=== PATIENT | male | born 1980 | race Caucasian/White ===

== ENCOUNTER → 2017-02-06 | Outpatient (CLI) | payer OTHER ==
--- NOTE | 2017-02-07 11:49 | RADIOLOGY REPORT (SQ) ---
EXAM DESCRIPTION: MRI RT LOWER JOINT WITHOUT COMPLETED DATE/TIME: 02/06/2017 3:21 pm REASON FOR STUDY: RIGHT KNEE PAIN (M25.561), CHRONIC RIGHT KNEE INSTABILITY (M23.51) M23.51 CHRONIC INSTABILITY OF KNEE, RIGHT KNEE M25.561 PAIN IN RIGHT KNEE COMPARISON: None. TECHNIQUE: Rightknee images acquired and stored on PACS. Multiplanar images include fat sensitive s equences as T1, water sensitive sequences as FST2 or STIR, cartilage sensitive sequences as FSPD, and gradient echo sequences. LIMITATIONS: None. FINDINGS: JOINT AND BURSAE: No effusion. BONE CORTEX AND MARROW: No alteration of signal to suggest marrow replacement. No worrisome bone lesi ons. No occult fracture. ACL: Intact. No degeneration or ganglion cyst. PCL: Intact. MCL: Intact. No periligamentous edema or fluid. LCL: Intact. No periligamentous edema or fluid. MEDIAL MENISCUS: Small complex tear posterior horn/ midbody inner edge medial meniscus, best shown on sagittal images 16-19, and coronal image 16. LATERAL MENISCUS: No tears. No abnormal signal. MEDIAL COMPARTMENT: Cartilage preserved. No bone bruises or reactive marrow edema. No osteophytes. LATERAL COMPARTMENT: Cartilage preserved. No bone bruises or reactive marrow edema. No osteophytes. PATELLA: No chondromalacia. No subchondral cysts. Medial and lateral retinacula intact. EXTENSOR MECHANISM: Intact. Quadriceps and patella tendons normal. SOFT TISSUES: Adjacent muscles and subcutaneous tissues normal. Normal flow void in popliteal artery and vein. OTHER: No other significant finding. IMPRESSION: Small complex tear medial meniscus. TECHNICAL DOCUMENTATION: JOB ID: [id number] [employer]- All Rights Reserved
== END ==
LOC: RAD 13:46
PROVIDERS: ATTEND Physician Assistant
DX: M25.561 Pain in right knee (principal); M23.51 Chronic instability of knee, right knee

== ENCOUNTER → 2017-02-12 | Outpatient (CLI) | payer OTHER ==
--- NOTE | 2017-02-12 14:33 | RADIOLOGY REPORT (SQ) ---
EXAM DESCRIPTION: MRI RT LOWER JOINT WITHOUT COMPLETED DATE/TIME: 02/12/2017 1:52 pm REASON FOR STUDY: RIGHT HIP PAIN (M25.551) M25.551 PAIN IN RIGHT HIP COMPARISON: None. TECHNIQUE: Righthip images acquired and stored on PACS. Multiplanar images to include fat sensitive sequences as T1, fluid sensitive sequences as T2/STIR and gradient echo sequences. Large FOV fat and fluid sensitive sequences include pelvis and opposite hip. LIMITATIONS: None. FINDINGS: BONE CORTEX AND MARROW: No generalized marrow replacement. No occult fracture. No worriso me bone lesions. RIGHT HIP: FEMORAL HEAD: No occult fracture. No osteophytes or subchondral cysts. Normal sphericity of femoral h ead/neck junction. No acetabular dysplasia. No evidence femoroacetabular impingement. No significant effusion. ACETABULUM: No acetabular dysplasia. No subchondral cysts. LABRUM: No loss of cartilage or delamination. Labrum is intact. No paralabral cysts. TROCHANTER: No trochanteric bursal effusion. No edema/fluid at the insertions of the gluteus medius and gluteus minimus. LEFT HIP: Limited evaluation. No worrisome bone lesions. No significant effusion. PELVIS, LOWER LUMBAR SPINE, SACROILIAC JOINTS: PELVIS : No insufficiency/stress fractures. No significant degenerative changes. Sacroiliac joints normal. L SPINE: No significant osteophytes or degenerative changes of the visualized lumbar spine. MUSCLES AND SOFT TISSUES: Adductors and piriformis normal. Abductors and greater trochanteric bursa n ormal without edema or fluid. Iliopsoas bursa without fluid. Hamstring attachments without edema or t ear. PELVIC SOFT TISSUES: No masses or adenopathy. SCIATIC NERVE: Identified, without masses or abnormal signal. OTHER: No other significant finding. IMPRESSION: NO SIGNIFICANT FINDING IN THE RIGHT HIP. TECHNICAL DOCUMENTATION: JOB ID: [id number] [employer]- All Rights Reserved
== END ==
LOC: EDSEX → RAD 12:58
PROVIDERS: ATTEND Physician Assistant
DX: M25.551 Pain in right hip (principal)

== ENCOUNTER → 2017-04-17 | Outpatient (CLI) | payer OTHER ==
--- NOTE | 2017-04-17 15:57 | RADIOLOGY REPORT (SQ) ---
EXAM DESCRIPTION: MRI RT UPPER JOINT WITHOUT COMPLETED DATE/TIME: 04/17/2017 3:31 pm REASON FOR STUDY: PAIN IN RIGHT SHOULDER (M25.511) M25.511 PAIN IN RIGHT SHOULDER COMPARISON: None. TECHNIQUE: Right shoulder images acquired and stored on PACS. Multiplanar imaging to include fat sen sitive sequences such as T1, water sensitive sequences such as FST2/STIR, cartilage sensitive sequenc es such as FSPD/gradient-echo sequences. LIMITATIONS: None. FINDINGS: BONE MARROW AND CORTEX: No worrisome bone lesions or marrow replacement. No occult fractur es. JOINT OR BURSAL EFFUSION: No significant joint or bursal fluid. No suggestion of loose bodies. GLENO-HUMERAL ARTICULATION: Normal articulation. No subluxation. No cystic change. No osteophytes or cartilage loss. ACROMION AND AC JOINT: No down-sloping or distal spur. Sub-acromial space maintained. No significa nt AC joint arthropathy. ROTATOR CUFF AND INTERVAL: Cuff intact. Slightly prominent cystic changes and underlying bone irregu larity in the posterolateral humeral head deep to infraspinatus insertion. The overlying cuff looks relatively normal, however. No cuff muscle atrophy. No rotator interval tear. No rotator interval thickening to suggest adhesive capsulitis. LABRUM AND BICEPS LABRAL COMPLEX: Intact. No labral tear. Intra-articular long-head biceps tendon n ormal. Distal biceps in normal location in bicipital groove. REMAINDER OF LABRUM AND IGHL : Grossly intact. PERIARTICULAR AND ADJACENT SOFT TISSUES: No masses or abnormal nodes. OTHER: No other significant finding. IMPRESSION: 1. Mild reactive bone changes underlying cuff (infraspinatus) insertion, slightly more conspicuous than typical. The cuff itself, however, looks normal. No significant tear or tendinosis . No labral pathology or chondral lesion. TECHNICAL DOCUMENTATION: JOB ID: [id number] [employer]- All Rights Reserved
== END ==
LOC: RAD 14:23
PROVIDERS: ATTEND Physician Assistant
DX: M25.511 Pain in right shoulder (principal)

== ENCOUNTER 2018-11-12 09:15 | Emergency (ER) | payer OTHER ==
--- NOTE | 2018-11-12 09:42 | ER Document Report ---
ED Medical Screen (RME) - General Chief Complaint: Syncope Stated Complaint: SYNCOPE Time Seen by Provider: 11/12/18 09:34 Primary Care Provider: GULSHAN LAMBERT PA [Primary Care Provider] - Follow up as needed Mode of Arrival: Medic Information source: Patient Notes: Patient presents patient presents to the emergency department, sent from the PA, with reports that he reached up to get a box off the shelf yesterday passed out hit his shoulder. He reports he was unable to talk for 2 minutes after that. Also reports for the past 2 weeks he has felt dizzy on and off and his body has felt weird, tingly. Reports family history of cardiac disease. aneurysms. Patient himself has history of PTSD, anxiety hypertension. Patient answering all questions appropriately no obvious neuro deficit, no weakness facial expressions symmetric. I have greeted and performed a rapid initial assessment of this patient. A comprehensive ED assessment and evaluation of the patient, analysis of test results and completion of the medical decision making process will be conducted by additional ED providers. Dictation of this chart was performed using voice recognition software; therefore, there may be some unintended grammatical errors. TRAVEL OUTSIDE OF THE [place] IN LAST 30 DAYS: No - Related Data Allergies/Adverse Reactions: No Known Allergies Allergy (Verified 11/12/18 09:28) Physical Exam - Vital signs Vitals: Temp Pulse Resp BP Pulse Ox 97.9 F 56 L 16 161/85 H 99 11/12/18 09:23 11/12/18 09:23 11/12/18 09:23 11/12/18 09:23 11/12/18 09:23 Course - Vital Signs Vital signs: Temp Pulse Resp BP Pulse Ox 97.9 F 56 L 16 161/85 H 99 11/12/18 09:23 11/12/18 09:23 11/12/18 09:23 11/12/18 09:23 11/12/18 09:23 Doctor's Discharge - Discharge Referrals: GULSHAN LAMBERT PA [Primary Care Provider] - Follow up as needed
[2018-11-12] MEDS ORDERED: MECLIZINE HCL 25 MG TABLET PO ONE (10:12)
--- NOTE | 2018-11-12 10:27 | ER Document Report ---
Entered by JACKIE RUBIO SCRIBE 11/12/18 1018 Acting as scribe for:JEFF VILCHIS MD ED Syncope and Near Syncope - General Chief Complaint: Syncope Stated Complaint: SYNCOPE Time Seen by Provider: 11/12/18 09:34 Primary Care Provider: GULSHAN LAMBERT PA [NO LOCAL MD] - Follow up as needed Mode of Arrival: Medic Information source: Patient Notes: 38-year-old male with anxiety who presents to the emergency department today with complaints of a 2-week history of intermittent dizziness. Patient states that last night he was reaching up to get a box off of a shelf in his garage and he "blacked out and fell down". Patient states during this episode he "could not talk" and developed tingling throughout the left side of his body. Patient states that this tingling has remained constant throughout his left upper and left lower extremity since yesterday. Patient states this is the first time he has had any syncopal event with this dizziness. Patient states that he notices that his dizziness is exacerbated with standing up and he does not get dizzy when lying in supine position. Patient states his "pulse is really low today", stating he usually has a heart rate of about 85-90. Patient also states that he feels like his "blood is ripping out of his skin". TRAVEL OUTSIDE OF THE [place] IN LAST 30 DAYS: No - Related Data Allergies/Adverse Reactions: No Known Allergies Allergy (Verified 11/12/18 09:28) Past Medical History - General Information source: Patient - Social History Smoking Status: Never Smoker Cigarette use (# per day): No Chew tobacco use (# tins/day): Yes - Dips Smoking Education Provided: No Frequency of alcohol use: Rare Drug Abuse: None Lives with: Family Family History: Reviewed & Not Pertinent, Other - Father has a glioblastoma Patient has suicidal ideation: No Patient has homicidal ideation: No - Past Medical History Cardiac Medical History: Reports: Hx Hypertension Psychiatric Medical History: Reports: Hx Anxiety, Hx Depression Past Surgical History: Reports: Hx Abdominal Surgery - hernia, Hx Orthopedic Surgery - knee Review of Systems - Review of Systems Constitutional: No symptoms reported EENT: No symptoms reported Cardiovascular: See HPI, Syncope, Dizziness Respiratory: No symptoms reported Gastrointestinal: No symptoms reported Genitourinary: No symptoms reported Male Genitourinary: No symptoms reported Musculoskeletal: No symptoms reported Skin: No symptoms reported Hematologic/Lymphatic: No symptoms reported Neurological/Psychological: See HPI, Tingling - left sided -: Yes All other systems reviewed and negative Physical Exam - Vital signs Vitals: Temp Pulse Resp BP Pulse Ox 97.9 F 56 L 16 161/85 H 99 11/12/18 09:23 11/12/18 09:23 11/12/18 09:23 11/12/18 09:23 11/12/18 09:23 - Notes Notes: Physical Exam: General: Alert, appears well. HEENT: Normocephalic. Atraumatic. PERRL. Extraocular movements intact. Oropharynx clear. No carotid bruits. No nystagmus with rapid head movement. Neck: Supple. Non-tender. Respiratory: No respiratory distress. Clear and equal breath sounds bilaterally. Cardiovascular: Regular rate and rhythm. Abdominal: Normal Inspection. Non-tender. No distension. Normal Bowel Sounds. Back: Non-tender. No deformity or step off. Extremities: Moves all four extremities. Upper extremities: Normal inspection. Normal ROM. Lower extremities: Normal inspection. No edema. Normal ROM. Neurological: Normal cognition. AAOx4. Normal speech. Psychological: Normal affect. Normal Mood. Skin: Warm. Dry. Normal color. Course - Re-evaluation Re-evalutation: 11/12/18 11:35 The patient reports that he does feel better after the Antivert. I had him stand up and look around and he states he could tell he big improvement. He complains of a persistent left-sided numbness though that involves his face left upper extremity and left lower extremity. We will get an MRI to exclude intracranial pathology. - Vital Signs Vital signs: Temp Pulse Resp BP Pulse Ox 97.9 F 56 L 16 161/85 H 99 11/12/18 09:23 11/12/18 09:23 11/12/18 09:23 11/12/18 09:23 11/12/18 09:23 - Laboratory Result Diagrams: 11/12/18 09:46 11/12/18 09:46 Laboratory results interpreted by me: 11/12/18 09:46 RDW 14.3 H - Diagnostic Test Radiology reviewed: Image reviewed, Reports reviewed - CT scan of the brain and MRI of the brain are both negative. - EKG Interpretation by Me EKG shows normal: Sinus rhythm, [place], Intervals, QRS Complexes, ST-T Waves Rate: Normal - 51 Rhythm: NSR Discharge - Discharge Clinical Impression: Dizziness, Numbness on left side Syncope Qualifiers: Syncope type: unspecified Qualified Code(s): R55 - Syncope and collapse Condition: Stable Disposition: HOME, SELF-CARE Additional Instructions: Syncopal Episode Syncope (fainting or near-fainting) can occur from many different health problems. Or it can be a simple fainting spell requiring no treatment. It is safe for you to go home, but further evaluation will likely be necessary. Your work-up may include tests for internal bleeding, heart disease, medication problems, or near-strokes. Tests are not always required, however, depending on the nature of your problem. The warning signs of an impending faint include: dizziness, lightheadedness, nausea, hot flashes, tingling, and weakness. If this happens, lay down and put your feet up, then wait until all of these symptoms have passed before standing up again. If these episodes become recurrent, or if you develop chest pain, heart palpitations, mental confusion, blurred vision, or headache, then you should call the physician, or go to the emergency room. The CT scan of your brain, and the MRI scan of your brain were both unremarkable. There was no explanation found for your left-sided numbness. Your dizziness sensation seem to improve some with the meclizine, so it would be reasonable to take meclizine over the next several days to see if it improves your symptoms. [facility] your other [facility] not improve. RETURN TO THE EMERGENCY ROOM IF ANY NEW OR WORSENING SYMPTOMS. Prescriptions: Meclizine HCl [Antivert 25 mg Tablet] 25 mg PO TID PRN #20 tablet PRN Reason: Referrals: GULSHAN LAMBERT PA [NO LOCAL MD] - Follow up as needed Scribe Attestation: 11/12/18 10:19 I personally performed the services described in the documentation, reviewed and edited the documentation which was dictated to the scribe in my presence, and it accurately records my words and actions. 11/12/18 1019 I personally performed the services described in the documentation, reviewed and edited the documentation which was dictated to the scribe in my presence, and it accurately records my words and actions.
--- NOTE | 2018-11-12 10:36 | RADIOLOGY REPORT (SQ) ---
EXAM DESCRIPTION: CHEST 2 VIEWS COMPLETED DATE/TIME: 11/12/2018 10:01 am REASON FOR STUDY: head injury, ?stroke, change loc yesterday COMPARISON: None. EXAM PARAMETERS: NUMBER OF VIEWS: two views TECHNIQUE: Digital Frontal and Lateral radiographic views of the chest acquired. RADIATION DOSE: NA LIMITATIONS: none FINDINGS: LUNGS AND PLEURA: No opacities, masses or pneumothorax. No pleural effusion. MEDIASTINUM AND HILAR STRUCTURES: No masses or contour abnormalities. HEART AND VASCULAR STRUCTURES: Heart normal size. No evidence for failure. BONES: No acute findings. HARDWARE: None in the chest. OTHER: No other significant finding. IMPRESSION: NO ACUTE RADIOGRAPHIC FINDING IN THE CHEST. TECHNICAL DOCUMENTATION: JOB ID: [id number] [employer]- All Rights Reserved Reading location - IP/workstation name: [email or web address]
--- NOTE | 2018-11-12 10:36 | RADIOLOGY REPORT (SQ) ---
EXAM DESCRIPTION: CT HEAD WITHOUT COMPLETED DATE/TIME: 11/12/2018 10:02 am REASON FOR STUDY: head injury, ?stroke, change loc yesterday COMPARISON: None. TECHNIQUE: Axial images acquired through the brain without intravenous contrast. Images reviewed wi th bone, brain and subdural windows. Images stored on PACS. All CT scanners at this facility use dose modulation, iterative reconstruction, and/or weight based d osing when appropriate to reduce radiation dose to as low as reasonably achievable (ALARA). [facility]: Dose Right [facility]: CareDose [facility]: Dose Right [facility]: Teradose 4D [facility]: Smart GEOLID RADIATION DOSE: CT Rad equipment meets quality standard of care and radiation dose reduction techniq ues were employed. CTDIvol: 53.2 mGy. DLP: 1124 mGy-cm. mGy. LIMITATIONS: None. FINDINGS: VENTRICLES: Normal size and contour. CEREBRUM: No masses. No hemorrhage. No midline shift. No evidence for acute infarction. Normal gra y/white matter differentiation. No areas of low density in the white matter. CEREBELLUM: No masses. No hemorrhage. No alteration of density. No evidence for acute infarction. EXTRAAXIAL SPACES: No fluid collections. No masses. ORBITS AND GLOBE: No intra- or extraconal masses. Normal contour of globe without masses. CALVARIUM: No fracture. PARANASAL SINUSES: No fluid or mucosal thickening. SOFT TISSUES: No mass or hematoma. OTHER: No other significant finding. IMPRESSION: NORMAL BRAIN CT WITHOUT CONTRAST. EVIDENCE OF ACUTE STROKE: NO. COMMENT: Quality ID # [id number]: Final reports with documentation of one or more dose reduction techniques (e.g., Automated exposure control, adjustment of the mA and/or kV according to patient size, use of iterative reconstruction technique) TECHNICAL DOCUMENTATION: JOB ID: [id number] [employer]- All Rights Reserved Reading location - IP/workstation name: [email or web address]
[2018-11-12 11:04] LABS: ABSOLUTE EOSINOPHILS # (AUTO) 0.1 10^3/uL (0.0-0.6); ABSOLUTE LYMPHOCYTES (AUTO) 1.5 10^3/uL (0.5-4.7); ABSOLUTE MONOCYTES (AUTO) 0.5 10^3/uL (0.1-1.4); ABSOLUTE NEUT (AUTO) 4.7 10^3/uL (1.7-8.2); BASOPHILS % (AUTO) 0.7 % (0-2); EOSINOPHILS % (AUTO) 1.5 % (0-6); HEMATOCRIT 43.5 % (37.9-51.0); HEMOGLOBIN 14.5 g/dL (13.5-17.0); LYMPHOCYTES % (AUTO) 22.1 % (13-45); MEAN CORPUSCULAR HEMOGLOBIN 27.1 pg (27.0-33.4); MEAN CORPUSCULAR HGB CONC 33.4 g/dL (32.0-36.0); MEAN CORPUSCULAR VOLUME 81 fl (80-97); MONOCYTES % (AUTO) 7.7 % (3-13); PLATELET COUNT 275 10^3/uL (150-450); RED BLOOD COUNT 5.36 10^6/uL (4.35-5.55); RED CELL DISTRIBUTION WIDTH 14.3 % (11.5-14.0); TOTAL CELLS COUNTED % (AUTO) 100 %
[2018-11-12 11:07] LABS: APPEARANCE,URINE SLIGHTLY-CLOUDY; BILIRUBIN,URINE NEGATIVE (NEGATIVE); COLOR,URINE YELLOW; GLUCOSE, URINE NEGATIVE (NEGATIVE); KETONES,URINE NEGATIVE (NEGATIVE); LEUKOCYTE ESTERASE,URINE NEGATIVE (NEGATIVE); NITRITE,URINE NEGATIVE (NEGATIVE); PROTEIN,URINE NEGATIVE (NEGATIVE); URINE SPECIFIC GRAVITY 1.018; UROBILINOGEN,URINE NEGATIVE mg/dL (<2.0)
[2018-11-12 11:24] LABS: ALANINE AMINOTRANSFERASE 44 U/L (21-72); ALBUMIN 4.6 g/dL (3.5-5.0); ALKALINE PHOSPHATASE 63 U/L (38-126); ANION GAP 11 (5-19); ASPARTATE AMINO TRANSFERASE 33 U/L (17-59); BILIRUBIN,DIRECT 0.2 mg/dL (0.0-0.4); BILIRUBIN,TOTAL 0.6 mg/dL (0.2-1.3); BLOOD UREA NITROGEN 11 mg/dL (7-20); CALCIUM 9.5 mg/dL (8.4-10.2); CARBON DIOXIDE 29 mmol/L (22-30); CHLORIDE 104 mmol/L (98-107); GLUCOSE 95 mg/dL (75-110); POTASSIUM 4.9 mmol/L (3.6-5.0); TOTAL PROTEIN 7.6 g/dL (6.3-8.2)
--- NOTE | 2018-11-12 12:39 | RADIOLOGY REPORT (SQ) ---
EXAM DESCRIPTION: MRI HEAD WITHOUT COMPLETED DATE/TIME: 11/12/2018 12:24 pm REASON FOR STUDY: Left-sided numbness COMPARISON: None. TECHNIQUE: Multiplanar imaging includes non-contrasted T1, T2, FLAIR, and diffusion with ADC map seq uences. Images stored on PACS. LIMITATIONS: None. FINDINGS: ANATOMY: No anomalies. Normal vascular flow voids. Pituitary fossa normal. CSF SPACES: Normal in size and contour. No hemorrhage. CEREBRUM: Sulci and gyri normal in size and contour. Normal white matter signal on FLAIR imaging. No evidence of hemorrhage, mass, or extraaxial fluid collection. POSTERIOR FOSSA: No signal alteration. No hemorrhage. No edema, masses or mass effect. Internal maki tory canals, cerebello-pontine angles, mastoids normal. Incidental note of a emerald cisterna magna maribel iant. DIFFUSION IMAGING: Negative for acute or sub-acute infarction. ORBITS: No masses. Globes normal. PARANASAL SINUSES: No fluid levels. Mucosa normal. OTHER: No other significant finding. IMPRESSION: No noncontrast MR abnormality of the brain to explain left-sided numbness. No evidence of acute diffusion restricting infarction. EVIDENCE OF ACUTE STROKE: NO. TECHNICAL DOCUMENTATION: JOB ID: [id number] [employer]- All Rights Reserved Reading location - IP/workstation name: [email or web address]
[2018-11-12 13:18] VITALS: BP 142/93
--- NOTE | 2018-11-12 14:34 | EKG REPORT ---
SEVERITY:- NORMAL ECG - SINUS RHYTHM : Confirmed by: Cas Sánchez MD 12-Nov-2018 14:33:02
== END 2018-11-12 13:21 | disposition home or self-care (01) ==
LOC: ER 09:15
DX: R55 Syncope and collapse (principal); R42 Dizziness and giddiness; R20.0 Anesthesia of skin
CPT/HCPCS: 36415; 70450; 70551; 71046; 80053; 81001; 85025; 93005; 93010; 99285

== ENCOUNTER → 2019-02-12 | Outpatient (CLI) | payer OTHER ==
--- NOTE | 2019-02-13 14:05 | RADIOLOGY REPORT (SQ) ---
EXAM DESCRIPTION: MRI CERVICAL SPINE COMBO COMPLETED DATE/TIME: 02/12/2019 8:25 am REASON FOR STUDY: (G95.9) Spinal Cord Lesion G95.9 DISEASE OF SPINAL CORD, UNSPECIFIED COMPARISON: Report of a prior MRI from another facility dated 11/19/2018. TECHNIQUE: Sagittal and Axial imaging includes T1, T2, STIR and gradient echo sequences. T1 post kyler olinium sequences. CONTRAST TYPE AND DOSE: 15 mL Dotarem. RENAL FUNCTION: Not indicated. ACR Type II contrast agent associated with few, if any, unconfounded cases of NSF LIMITATIONS: None. FINDINGS: ALIGNMENT: Normal. VERTEBRAE: Intact. BONE MARROW: Normal. No marrow replacement or reactive changes. DISCS: Normal. No significant abnormal signal or loss of height. HARDWARE: None in the spine. CORD AND BASE OF BRAIN: There is a cord lesion at the level of C4-C5. There is asymmetric right side expansion of the cord with increased signal on T2 and STIR images. There is enhancement on postcont rast images. On axial images the transverse measurement of this cord lesion is approximately 8 mm an d AP measurement approximately 7 mm. On sagittal images the craniocaudal extent measures approximate ly 5 mm. SOFT TISSUES: No soft tissue masses. C1-C2: No significant spinal stenosis. C2-C3: No significant spinal stenosis or exit foraminal stenosis. C3-C4: Mild diffuse posterior disc bulge. Focal central disc protrusion with mild spinal stenosis an d impingement of the cord. No significant exit foraminal stenosis. C4-C5: Posterior disc and osteophyte, asymmetric to the left, resulting in moderate spinal stenosis. Uncovertebral spurring with bilateral exit foraminal stenosis. C5-C6: Mild asymmetric left-sided posterior disc and osteophyte and uncovertebral spurring with left exit foraminal stenosis. No significant spinal stenosis. C6-C7: No significant spinal stenosis. Uncovertebral spurring with bilateral exit foraminal stenosis . C7-T1: No significant spinal stenosis or exit foraminal stenosis. UPPER THORACIC: Incompletely imaged. No significant spinal stenosis or exit foraminal stenosis. ENHANCEMENT: Cord enhancement as described above. OTHER: There is a lesion in the right lobe of the thyroid, incompletely visualized on sagittal imagin g and obscured by the saturation band on axial imaging. This could be a complex cystic thyroid nodul e. IMPRESSION: 1. FOCAL CORD LESION AT THE LEVEL OF C4-C5 WITH ASYMMETRIC RIGHT SIDE EXPANSION, ABNORMAL SIGNAL, AND CONTRAST ENHANCEMENT. CONCERNING FOR INTRINSIC CORD TUMOR ALTHOUGH OTHER ETIOLOGIES COULD INCLUDE I NFLAMMATION. BASED ON THE PRIOR REPORT (11/19/2018) THERE IS PROBABLY NO SIGNIFICANT INTERVAL CHANGE BUT THE PRIOR IMAGES ARE NOT CURRENTLY AVAILABLE FOR DIRECT COMPARISON. 2. MULTILEVEL DEGENERATIVE CHANGES DESCRIBED ABOVE. 3. RIGHT-SIDED THYROID NODULE, INCOMPLETELY VISUALIZED. COMMENT: None. TECHNICAL DOCUMENTATION: JOB ID: [id number] [employer]- All Rights Reserved Reading location - IP/workstation name: [email or web address]
== END ==
LOC: RAD 08:16
PROVIDERS: ATTEND Psychiatry & Neurology Neurology
DX: G95.9 Disease of spinal cord, unspecified (principal)
CPT/HCPCS: 82565; 72156; A9576

== ENCOUNTER → 2019-02-19 | Outpatient (CLI) | payer OTHER ==
--- NOTE | 2019-02-19 11:27 | RADIOLOGY REPORT (SQ) ---
EXAM DESCRIPTION: CT CHEST WITH COMPLETED DATE/TIME: 02/19/2019 10:23 am REASON FOR STUDY: SARCOIDOSIS, UNSPECIFIED;DISEASE OF SPINAL CORD,UN D86.9 SARCOIDOSIS, UNSPECIFIED G95.9 DISEASE OF SPINAL CORD, UNSPECIFIED COMPARISON: None. TECHNIQUE: CT scan of the chest performed using helical scanning technique with dynamic intravenous contrast injection. Images reviewed with lung, soft tissue and bone windows. Reconstructed coronal and sagittal MPR and MIP images reviewed. All images stored on PACS. All CT scanners at this facility use dose modulation, iterative reconstruction, and/or weight based d osing when appropriate to reduce radiation dose to as low as reasonably achievable (ALARA). [facility]: Dose Right [facility]: CareDose [facility]: Dose Right [facility]: Teradose 4D [facility]: 4Cable TV CONTRAST TYPE AND DOSE: contrast/concentration: Isovue 350.00 mg/ml; Total Contrast Delivered: 80.0 ml; Total Saline Delivered: 55.0 ml RENAL FUNCTION: None required. The patient is less than 50 years old. RADIATION DOSE: CT Rad equipment meets quality standard of care and radiation dose reduction techniq ues were employed. CTDIvol: 16.9 mGy. DLP: 735 mGy-cm. . LIMITATIONS: None. FINDINGS: LUNGS AND PLEURA: No opacities, nodules, masses. No pneumothorax. No effusions. HILAR AND MEDIASTINAL STRUCTURES: No identified masses or abnormal nodes. HEART AND VASCULAR STRUCTURES: No aneurysm or dissection. No central pulmonary emboli. No pericardi al effusion. HARDWARE: None in the chest. UPPER ABDOMEN: No significant findings. Limited exam. THYROID AND OTHER SOFT TISSUES: No masses. No adenopathy. BONES: No significant finding. OTHER: No other significant finding. IMPRESSION: NORMAL CT OF THE CHEST WITH IV CONTRAST. TECHNICAL DOCUMENTATION: JOB ID: [id number] Quality ID # [id number]: Final reports with documentation of one or more dose reduction techniques (e.g., Au tomated exposure control, adjustment of the mA and/or kV according to patient size, use of iterative reconstruction technique) 2010 [employer]- All Rights Reserved Reading location - IP/workstation name: [email or web address]
== END ==
LOC: RAD 10:02
PROVIDERS: ATTEND Psychiatry & Neurology Neurology
DX: D86.9 Sarcoidosis, unspecified (principal); G95.9 Disease of spinal cord, unspecified
CPT/HCPCS: 71260

== ENCOUNTER → 2019-08-31 | Outpatient (CLI) | payer OTHER ==
--- NOTE | 2019-08-31 17:23 | RADIOLOGY REPORT (SQ) ---
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 M43.22 FUSION OF SPINE, CERVICAL REGION COMPARISON: 02/12/2019 MRI cervical spine without and with contrast MRI from 11/19/2018 [facility] is unavailable TECHNIQUE: Sagittal and Axial imaging includes T1, T2, STIR and gradient echo sequences. T1 post kyler olinium sequences. CONTRAST TYPE AND DOSE: 10 mL Dotarem. RENAL FUNCTION: Not indicated. ACR Type II contrast agent associated with few, if any, unconfounded cases of NSF LIMITATIONS: None. FINDINGS: ALIGNMENT: Normal. VERTEBRAE: Intact. BONE MARROW: Normal. No marrow replacement or reactive changes. DISCS: Post fusion at C3-4, C4-5, C5-6 HARDWARE: As above CORD AND BASE OF BRAIN: Persistent abnormal increased T2/star intrinsic cord signal is present from t he mid C4 level to the upper C6 levels. There is diffuse increased T2/stir signal in the rightward h kandis of the spinal cord. This is best shown on sagittal T2 image 6, and axial T2 series 6, images 14- 16. On the postcontrast sagittal image 7, bandlike enhancement in the cord is present at the level o f the C4-5 disc space. These findings are unchanged from 02/12/2019, and most likely represent change s of cord trauma and granulation tissue/myelomalacia. Tumor could not entirely be excluded. Compari son with imaging from 11/19/2018 MRI recommended. SOFT TISSUES: 3 cm mass in the right lobe thyroid unchanged. C1-C2: No significant spinal stenosis. C2-C3: No significant spinal stenosis or exit foraminal stenosis. C3-C4: Post fusion. No central or foraminal stenosis. C4-C5: Post fusion. Mild posterior bony spurring partially effaces the ventral thecal sac and abuts the ventral cord without cord flattening. Borderline central canal narrowing. Moderate bilateral fo raminal narrowing right greater than left. C5-C6: Post fusion. Left foraminal and lateral disc bulge and bony spurring is present causing mild left foraminal narrowing. No central canal or right foraminal stenosis C6-C7: Mild bilateral foraminal narrowing from facet and uncovertebral hypertrophy. No central steno sis C7-T1: No significant spinal stenosis or exit foraminal stenosis. UPPER THORACIC: Incompletely imaged. No significant spinal stenosis or exit foraminal stenosis. ENHANCEMENT: Bandlike enhancement rightward cervical cord at the C4-5 disc space level, unchanged fro m 02/12/2019 likely related to myelomalacia or cord trauma. Tumor could not entirely be excluded. Co mparison with prior MRI 11/19/2018 recommended OTHER: No other significant finding. IMPRESSION: Persistent abnormal intrinsic cord signal and enhancement on the right at the level of t he C4-5 disc. This is similar compared to 02/12/2019. 3 cm right thyroid mass Fusion at C3-4, C4-5, and C5-6 with mild to moderate multilevel persistent foraminal narrowing as abo ve COMMENT: None. TECHNICAL DOCUMENTATION: JOB ID: [id number] 2010 [employer]- All Rights Reserved Reading location - IP/workstation name: [email or web address]
== END ==
LOC: RAD 12:23
DX: M43.22 Fusion of spine, cervical region (principal); M48.02 Spinal stenosis, cervical region; Z87.828 Personal history of other (healed) physical injury and trauma
CPT/HCPCS: 82565; 72156; A9576